=== PATIENT | female | born 1990 | race Caucasian/White ===

== ENCOUNTER 2024-06-06 09:52 | Outpatient (REF) | payer BC, SELFPAY ==
--- NOTE | ~2024-06-06 | XR_ITS ---
EXAMINATION: XR LUMBOSACRAL SPINE CLINICAL INFORMATION: M53.3 - Sacrococcygeal disorders, not elsewhere classified COMPARISON: None available. TECHNIQUE: Three views of the lumbosacral spine. FINDINGS: Rudimentary ribs at T12. No acute cortical disruption or gross malalignment. Mild endplate sclerosis at multiple levels. Small marginal osteophyte formation at the vertebral bodies lower thoracic spine. No lytic or blastic lesions. XR/XR lumbar spine 2-3V IMPRESSION: Mild multilevel thoracolumbar spondylosis. Electronically signed by: Guillermo Schaeffer MD 06/09/2024 09:53 AM EST
--- NOTE | ~2024-06-06 | XR_ITS ---
EXAMINATION: XR PELVIS CLINICAL INFORMATION: M53.3 - Sacrococcygeal disorders, not elsewhere classified COMPARISON: None available. TECHNIQUE: AP view of the pelvis. FINDINGS: Sclerosis in the sacroiliac joints more conspicuous on the left side. No acute cortical disruption or gross malalignment in either hip. Bony pelvis is intact. No lytic or blastic lesions. XR/XR pelvis min 3V IMPRESSION: Questionable left-sided sacroiliitis. Electronically signed by: Guillermo Schaeffer MD 06/09/2024 09:56 AM LEONARDA
--- OUTSIDE RECORDS SUMMARY | 2024-06-06 11:44 | XMS_ITS | Encounter Summary ---
Author Organization [facility] Address [phone] [place] [address] Care Team Providers Care Industrial Chemistry Teacher Name Role Phone Pcp, Unknown Primary Care Provider Unavailabl Iraida Nix NP Unavailable +- [phone] Mya Arrington CNM Unavailable [phone] Iraida Kahn NP Unavailable +- [phone] Rafa Heath MD Unavailable Blanche Brady L D RN Unavailable [phone] Marie Bianchi L D RN Unavailable [phone] Nancy Orosco LIVE OUT NANNY Unavailable [phone] Beka Marino MD Unavailable +- [phone] Juan Mcarthur MD Unavailable Unavailable Kellie Saucedo L D RN Unavailable Oracio Donnelly MD Unavailable +[phone] Juan Tarango MD Unavailable Beka Marino MD Unavailable +1 Iraida Kahn NP Primary Care Provider +1 Beka Marino MD Unavailable +[phone] Beka Marino MD Primary Care Provider [phone] Encounter Details Date Type Department Care Team (Late st Contact Info) Description 11/06/2018 Ancillary Orders [facility], X-Ray - [address] [place] [address] Ga Drew PA-C [address] [place] [address] [email or web address] Physical exam Social History Tobacco Use Types Packs/Day Years Used Date Smoking Tobacco: Former Smokeless Tobacco: Never Comments:At age 14; smoked f or one year only Alcohol Use Standard Drinks/Week Comments No 0 (1 standard drink = 0.6 oz pur e alcohol) Sex and Gender Information Value Date Recorded Sex Assigned at Female 04/09/2019 8:48 PM EST Gender Identity Female 04/09/2019 8:48 PM EST Sexual Orientation Not on file documented as of this encounter Plan of Treatment Not on file documented as of this encounter Results * XR CHEST PA AND LATERAL 2 VIEWS (11/06/2018 10:28 AM EDT) Anatomical Region Laterality Modality Chest Radiographic Jaclyn ging 11/06/2018 10:5 3 AM EDT Impressions 11/06/2018 11:27 AM EDT Clear lungs. POS - [id number] Edited by: Shira Arthur on 11/06/2018 11:13 AM Narrative 11/06/2018 11:27 AM EDT PA and lateral views of the chest obtained. No prior. Heart, lung, and mediastinal contours appear within the range of normal. No compression deformity. Procedure Note Roderick Crow MD - 11/06/2018 PA and lateral views of the chest obtained. No prior. Heart, lung, andmediastinal contours appear within the range of normal. No compressiondeformity. IMPRESSION: Clear lungs. POS - [id number] Edited by: Shira Arthur on 11/06/2018 11:13 AM Ga Drew PA-C IMG XR CHEST documented in this encounter Visit Diagnoses Diagnosis Physical exam Unspecified general medical examination Physical exam Unspecified general medical examination documented in this encounter Additional Health Concerns Infection Onset Date Last Indicated Resolved Time CoV-Risk 12/02/2019 12/02/2019 12/16/2019 1:23 AM EDT documented as of this encounter Care Teams Industrial Chemistry Teacher Relationship Specialty Start Date End Date Pcp, Unknown PCP - General 11/01/18 12/12/18 Iraida Kahn NP [address] [place] [address] [email or web address] PCP - General Internal Medicine 12/13/18 09/05/20 Beka Marino MD [address] [place] [address] [email or web address] PCP - General Internal Medicine 09/06/20 Iraida Kahn NP [address] [place] [address] [email or web address] Internal Medicine 11/01/18 Mya Arrington CNM [address] [place] [address] [email or web address] Historical LMR Provider 02/27/17 05/21/21 Iraida Kahn NP [address] [place] [address] [email or web address] Historical LMR Provider 02/27/17 Rafa Heath MD [address] [place] [address] [email or web address] Historical LMR Provider 02/27/17 05/21/21 Blanche Brady L D RN [address] [place] [address] [email or web address] Historical LMR Provider 02/27/17 05/21/21 Marie Bianchi NP [address] [place] [address] [email or web address] Historical LMR Provider 02/27/17 05/21/21 Nancy Orosco, LIVE OUT NANNY [address] [place] [address] [place] [address] [email or web address] Historical LMR Provider 02/27/17 Beka Marino MD [address] [place] [address] Historical LMR Provider 02/27/17 Juan Mcarthur MD Historical LMR Provider 02/27/17 05/21/21 Kellie Saucedo, DALTON [address] [place] [address] Historical LMR Provider 02/27/17 Oracio Donnelly MD [address] [place] [address] Historical LMR Provider 02/27/17 05/21/21 Juan Tarango MD [address] [place] [address] Historical LMR Provider 02/27/17 05/21/21 Beka Marino MD [address] [place] [address] [address] [place] [address] [email or web address] Insurance Assigned Provider 08/18/23 Beka Marino MD [address] [place] [address] [address] [place] [address] [email or web address] Insurance Assigned Provider 09/14/18 05/22/20 documented as of this encounter Additional Source Comments The information contained in this document represents components of the legal health record. It is not the complete legal health record.[facility]
--- OUTSIDE RECORDS SUMMARY | 2024-06-06 11:44 | XMS_ITS | Encounter Summary ---
Author Organization [facility] Address [phone] [place] [address] Care Team Providers Care Machining Manager Name Role Phone Iraida Kahn INSIDE SALES SUPERVISOR Unavailable + Iraida Kahn INSIDE SALES SUPERVISOR Unavailable + Nancy Orosco FARM PRODUCTS SHIPPER Unavailable + Beka Marino MD Unavailable +[phone] Beka Marino MD Unavailable +[phone] Beka Marino MD Primary Care Provider + Encounter Details Date Type Department Care Team (Late st Contact Info) Description 03/22/2023 Procedure Pass [address] [place] [address] Social History Tobacco Use Types Packs/Day Years Used Date Smoking Tobacco: Former Smokeless Tobacco: Never Comments:At age 14; smoked f or one year only Alcohol Use Standard Drinks/Week Comments No 0 (1 standard drink = 0.6 oz pur e alcohol) Education Answer Date Recorded Are you interested in more education? Not on jen e 09/08/2022 Are you concerned about learning? Not on file 09/08/2022 No 09/08/2022 No 09/08/2022 Digital Access Answer Date Recorded No 10/06/2022 No 10/06/2022 Reliable internet access at home? Not on file 10/06/2022 Device with a working camera? Not on file Intimate Partner Violence Answer Date R ecorded Are you denied basic needs s uch as food, clothing, or medical care? No 03/10/2023 In the past 12 months have y ou been in a relationship with a person who hurts, threatens, or tries to control you? No 03/10/2023 Are you denied basic needs s uch as food, clothing, or medical care? No 03/10/2023 In the past 12 months have y ou been in a relationship with a person who hurts, threatens, or tries to control you? No 03/10/2023 Sex and Gender Information Value Date Recorded Sex Assigned at Female 04/09/2019 8:48 PM EST Gender Identity Female 04/09/2019 8:48 PM EST Sexual Orientation Not on file documented as of this encounter Plan of Treatment Not on file documented as of this encounter Visit Diagnoses Not on filedocumented in this encounter Care Teams Machining Manager Relationship Specialty Start Date End Date Beka Marino MD [address] [place] [address] [place] [address] [email or web address] PCP - General Internal Medicine 09/06/20 Iraida Kahn NP [address] [place] [address] [email or web address] 11/01/18 Iraida Kahn NP [address] [place] [address] [email or web address] Historical LMR Provider 02/27/17 Nancy Orosco, FARM PRODUCTS SHIPPER [address] [place] [address] [place] [address] [email or web address] Historical LMR Provider 02/27/17 Beka Marino MD [address] [place] [address] [place] [address] [email or web address] Historical LMR Provider 02/27/17 Beka Marino MD [address] [place] [address] [address] [place] [address] [email or web address] Insurance Assigned Provider 08/18/23 documented as of this encounter Additional Source Comments The information contained in this document represents components of the legal health record. It is not the complete legal health record.[facility]
--- OUTSIDE RECORDS SUMMARY | 2024-06-06 11:45 | XMS_ITS | Encounter Summary ---
Author Organization [facility] Address [phone] [place] [address] Care Team Providers Care Divinity Professor Name Role Phone Iraida Kahn WINE CONSULTANT Unavailable + Iraida Kahn WINE CONSULTANT Unavailable + Nancy Orosco DISTRICT ENGINEER Unavailable [phone] Beka Marino MD Unavailable [phone] Beka Marino MD Unavailable [phone] Beka Marino MD Primary Care Provider [phone] Reason for Referral * Consultation (Within 2 weeks) - New Request Specialty Diagnoses / Procedures Referred By Pravin shields Referred To Contact Diagnoses Low back pain Beka Marino MD [address] [facility] [address] [place] [address] Email: Leoncio Clemons PA [address] [place] [address] Referral ID Status Reason Start Date Expiration Date V isits Requested Visits Authorized [id number] New Request 06/05/2024 06/05/2025 8 1 Encounter Details Date Type Department Care Team ([facility] st Contact Info) Description 06/05/2024 Orders Only [facility] [place] [facility] [address] [facility] [address] [place] [address] Josi Long MA [address] [place] [address] [email or web address] Low back pain (Primary Dx) Social History Tobacco Use Types Packs/Day Years Used Date Smoking Tobacco: Former Smokeless Tobacco: Never Comments:At age 14; smoked f or one year only Alcohol Use Standard Drinks/Week Comments Yes 1 (1 standard drink = 0.6 oz pur [...] as of this encounter Plan of Treatment Scheduled Referrals Name Type Priority Associated Diagnoses Order Schedule Ambulatory referral to External Provider Outpatient Referral Routine Low back pain Ordered: 06/05/2024 documented as of this encounter Visit Diagnoses Diagnosis Low back pain- Primary Lumbago documented in this encounter Care Teams Divinity Professor Relationship Specialty Start Date End Date Beka Marino MD [address] [place] [address] [address] [place] [address] [email or web address] PCP - General Internal Medicine 09/06/20 Iraida Kahn NP [address] [place] [address] [email or web address] Internal Medicine 11/01/18 Iraida Kahn, DALTON [address] [place] [address] [email or web address] Historical LMR Provider 02/27/17 Nancy Orosco, DISTRICT ENGINEER [address] [place] [address] [email or web address] Historical LMR Provider 02/27/17 Beka Marino MD [address] [place] [address] [email or web address] Historical LMR Provider 02/27/17 Beka Marino MD [address] [place] [address] [email or web address] Insurance Assigned Provider 08/18/23 documented as of this encounter Additional Source Comments The information contained in this document represents components of the legal health record. It is not the complete legal health record.[facility]
--- OUTSIDE RECORDS SUMMARY | 2024-06-06 11:46 | XMS_ITS | Encounter Summary ---
Author Organization [facility] Address [phone] [place] [address] Care Team Providers Care Retail Service Specialist Name Role Phone Beka Marino MD Primary Care Provider [phone] Iraida Kahn NP Primary Care Provider + Pcp, Unknown Primary Care Provider Unavailabl e Iraida Kahn NP Unavailable +- Beka Marino MD Unavailable +[phone] Mya Arrington CNM Unavailable [phone] Iraida Kahn NP Unavailable + [phone] Rafa Heath MD Unavailable Blanche Brady INVENTORY ASSISTANT Unavailable [phone] Marie Bianchi INVENTORY ASSISTANT Unavailable [phone] Nancy Orosco SUPPLY CHAIN BUSINESS ANALYST Unavailable [phone] Beka Marino MD Unavailable +[phone] Juan Mcarthur MD Unavailable Unavailable Kellie Saucedo INVENTORY ASSISTANT Unavailable Oracio Donnelly MD Unavailable [phone] Juan Tarango MD Unavailable [phone] Beka Marino MD Unavailable +[phone] Iraida Kahn NP Primary Care Provider + Beka Marino MD Unavailable +[phone] Beka Marino MD Primary Care Provider Encounter Details Date Type Department Care Team (Late st Contact Info) Description 10/25/2017 Procedure Pass OR Admitting Dept - Virtual Department [address] [place] [address] Social History Tobacco Use Types Packs/Day Years [...] Diagnoses Not on filedocumented in this encounter Additional Health Concerns Infection Onset Date Last Indicated Resolved Time CoV-Risk 12/02/2019 12/02/2019 12/16/2019 1:23 AM EDT documented as of this encounter Care Teams Retail Service Specialist Relationship Specialty Start Date End Date Beka Marino MD [address] [place] [address] [place] [address] [email or web address] PCP - General 03/20/17 05/19/18 Iraida Kahn NP [address] [place] [address] [email or web address] PCP - General Internal Medicine 05/20/18 10/31/18 Pcp, Unknown PCP - General 11/01/18 12/12/18 Iraida Kahn NP [address] [place] [address] [email or web address] PCP - General Internal Medicine 12/13/18 09/05/20 Beka Marino MD [address] [place] [address] [place] [address] [email or web address] PCP - General Internal Medicine 09/06/20 Iraida Kahn NP [address] [place] [address] [place] [address] [email or web address] Internal Medicine 11/01/18 Beka Marino MD [address] [place] [address] [place] [address] 03/20/17 10/31/18 Mya Arrington CNM [address] [place] [address] [email or web address] Historical LMR Provider 02/27/17 05/21/21 Iraida Kahn NP [address] [place] [address] [email or web address] Historical LMR Provider 02/27/17 Rafa Heath MD [address] [place] [address] [email or web address] Historical LMR Provider 02/27/17 05/21/21 Blanche Brady NP [address] [place] [address] [email or web address] Historical LMR Provider 02/27/17 05/21/21 Marie Bianchi NP [address] [place] [address] [email or web address] Historical LMR Provider 02/27/17 05/21/21 Nancy Orosco, JESSICA [address] [place] [address] Historical LMR Provider 02/27/17 Beka Marino MD [address] [place] [address] Historical LMR Provider 02/27/17 Juan Mcarthur MD Historical LMR Provider 02/27/17 05/21/21 Kellie Saucedo, DALTON [address] [place] [address] Historical LMR Provider 02/27/17 Oracio Donnelly MD [address] [place] [address] [email or web address] Historical LMR Provider 02/27/17 05/21/21 Juan Tarango MD [address] [place] [address] [email or web address] Historical LMR Provider 02/27/17 05/21/21 Beka Marino MD [address] [place] [address] Insurance Assigned Provider 08/18/23 Beka Marino MD [address] [place] [address] [email or web address] Insurance Assigned Provider 09/14/18 05/22/20 documented as of this encounter Additional Source Comments The information contained in this document represents components of the legal health record. It is not the complete legal health record.[facility]
--- OUTSIDE RECORDS SUMMARY | 2024-06-06 11:46 | XMS_ITS | Encounter Summary ---
Author Organization [facility] Address [phone] [place] [address] Care Team Providers Care Inventory Control Analyst Name Role Phone Iraida Kahn NP Unavailable + Iraida Kahn NP Unavailable + Nancy Orosco MANAGER IN HOME Unavailable [phone] Beka Marino MD Unavailable +[phone] Beka Marino MD Unavailable +[phone] Beka Marino MD Primary Care Provider [phone] Reason for Referral * Consultation (Within 2 weeks) - Authorized Specialty Diagnoses / Procedures Referred By Pravin shields Referred To Contact Diagnoses Chronic left sacroiliac joint pain Iraida Kahn NP [address] [facility] [address] [place] [address] Email: Leoncio Alarcon, DO [address] [place] [phone] Referral ID Status Reason Start Date Expiration Date V isits Requested Visits Authorized [id number] Authorized 03/13/2024 03/13/2025 12 12 Reason for Visit * Reason Onset Date Comments Referral 03/13/2024 Encounter Details Date Type Department Care Team ([facility] Contact Info) Description 03/13/2024 Telephone [facility] [address] [place] [address] Beka Marino MD 14 [facility] [address] [place] [address] [email or web address] Referral Social History Tobacco Use Types Packs/Day Years [...] on file documented as of this encounter Progress Notes * Josi Long MA - 04/14/2024 3:15 PM EST Referral re faxed to [phone] and [phone] * Leoncio Gonzáles - 04/14/2024 2:15 PM EST Pt called in, said [facility] does not have the referral. Pleaser fax. Central Support Mason Apprentice (Please do not reply to this user; this inbox is not monitored.) Thank you. * Josi Long MA - 03/13/2024 4:01 PM EDT Referral faxed * Jany Gamble RN - 03/13/2024 3:54 PM EDT Referral placed * Gregg Bingham - 03/13/2024 3:44 PM EDT Referral Request 1. Name of the office where the patient has been seen/requests to be seen: [facility] 2. Reason for referral/specialist appointment and the diagnosis code: M54.50 Low Back Pain 2A. Have you seen this provider before for this same problem? YES/NO: yes 2B. If this is a new problem, is your PCP aware of your symptoms? N/a 3. Date of appointment(s):03/13 4. Name of specialist provider: Dr. Leoncio Alarcon 5. NPI number to enter for referral authorization (enter n/a if not available): [id number] 6. Number of visits requested for referral: 12 7. Fax number of specialist office to send referral authorization: [phone] documented in this encounter Plan of Treatment Scheduled Referrals Name Type Priority Associated Diagnoses Order Schedule Ambulatory referral to External Physiatry Outpatient Referral Routine Chronic left sacroiliac joint pain Ordered: 03/13/2024 documented as of this encounter Visit Diagnoses Diagnosis Chronic left sacroiliac joint pain- Primary Disorders of sacrum documented in this encounter Care Teams Inventory Control Analyst Relationship Specialty Start Date End Date Beka Marino MD [address] [place] [address] [email or web address] PCP - General Internal Medicine 09/06/20 Iraida Kahn NP [address] [place] [address] [email or web address] Internal Medicine 11/01/18 Iraida Kahn NP [address] [place] [address] [email or web address] Historical LMR Provider 02/27/17 Nancy Orosco CNP [address] [place] [address] [email or web address] Historical LMR Provider 02/27/17 Beka Marino MD [address] [place] [address] [email or web address] Historical LMR Provider 02/27/17 Beka Marino MD [address] [place] [address] [email or web address] Insurance Assigned Provider 08/18/23 documented as of this encounter Additional Source Comments The information contained in this document represents components of the legal health record. It is not the complete legal health record.[facility]
--- OUTSIDE RECORDS SUMMARY | 2024-06-06 11:46 | XMS_ITS | Encounter Summary ---
Author Organization [facility] Address [phone] [place] [address] Care Team Providers Care Piano Regulator Name Role Phone Iraida Kahn ANTENNA SPECIALIST Unavailable + Iraida Kahn ANTENNA SPECIALIST Unavailable + Nancy Orosco FISH HATCHERY MAN Unavailable [phone] Beka Marino MD Unavailable +[phone] Beka Marino MD Unavailable +[phone] Beka Marino MD Primary Care Provider [phone] Reason for Referral * MRI/CAT Scan - Closed Specialty Diagnoses / Procedures Referred By Pravin hsields Referred To Contact Radiology Diagnoses Chronic lumbosacral pain Lumbar back pain with radiculopathy affecting left lower extremity Procedures MRI Lumbar Spine Leoncio Alarcon DO [address] [place] [address] Referral ID Status Reason Start Date Expiration Date Visits Re quested Visits Authorized [id number] Closed 05/16/2024 05/16/2025 1 1 Encounter Details Date Type Department Care Team (Latest Contact Info) Description 05/16/2024 Transcribe Orders Virtual Department [address] [place] [address] Leoncio Alarcon DO [address] [place] [phone] Chronic lumbosacral pain (Primary Dx); Lumbar back pain with radiculopathy affecting left lower extremity Social History Tobacco Use Types Packs/Day Years [...] documented as of this encounter Results * MRI LUMBAR SPINE (NEURO) WITHOUT CONTRAST (05/22/2024 10:44 AM EST) Anatomical Region Laterality Modality L-spine Magnetic Resonan ce 05/23/2024 12:2 9 PM EST Impressions 05/23/2024 12:32 PM EST 1. ??Mild lower lumbar spondylosis, without high-grade canal or foraminal narrowing. Narrative 05/23/2024 12:32 PM EST MRI LUMBAR SPINE (NEURO) WITHOUT CONTRAST Referring clinician's provided indication for this examination in Epic: Outside Radiology Order TECHNIQUE: MRI LUMBAR SPINE (NEURO) WITHOUT CONTRAST Multi-sequence, multi-planar MRI of the lumbar spine was performed without intravenous contrast. COMPARISON: MRI LUMBAR SPINE (NEURO) WITHOUT CONTRAST FINDINGS: LUMBAR SPINE: Alignment and Vertebrae: Normal alignment. No compression fracture. Marrow: No bone marrow replacing lesion. Discs and Endplates: Normal intervertebral disc heights and signal. Conus: Normal. Soft Tissues: Normal. No prevertebral edema. Other Findings: None. Findings by level: T12-L1: Negative L1-L2: Negative L2-L3: Negative L3-L4: Mild diffuse disc bulge and mild bilateral facet arthropathy, without significant canal or foraminal narrowing. L4-L5: Mild diffuse disc bulge and mild bilateral facet arthropathy, without significant canal or foraminal narrowing. L5-S1: Mild diffuse disc bulge with a small central protrusion. Mild bilateral facet arthropathy. No significant canal or foraminal narrowing. Procedure Note Joe Antonio MD - 05/23/2024 MRI LUMBAR SPINE (NEURO) WITHOUT CONTRAST Referring clinician's provided indication for this examination in Epic:Outside Radiology Order TECHNIQUE: MRI LUMBAR SPINE (NEURO) WITHOUT CONTRAST Multi-sequence, multi-planar MRI of the lumbar spine was performed withoutintravenous contrast. COMPARISON: MRI LUMBAR SPINE (NEURO) WITHOUT CONTRAST FINDINGS: LUMBAR SPINE: Alignment and Vertebrae: Normal alignment. No compression fracture. Marrow: No bone marrow replacing lesion. Discs and Endplates: Normal intervertebral disc heights and signal. Conus: Normal. Soft Tissues: Normal. No prevertebral edema. Other Findings: None. Findings by level: T12-L1: Negative L1-L2: Negative L2-L3: Negative L3-L4: Mild diffuse disc bulge and mild bilateral facet arthropathy,without significant canal or foraminal narrowing. L4-L5: Mild diffuse disc bulge and mild bilateral facet arthropathy,without significant canal or foraminal narrowing. L5-S1: Mild diffuse disc bulge with a small central protrusion. Mildbilateral facet arthropathy. No significant canal or foraminalnarrowing. IMPRESSION: 1. Mild lower lumbar spondylosis, without high-grade canal or foraminalnarrowing. Leoncio Alarcon DO IMG MR XSPECIALTY documented in this encounter Visit Diagnoses Diagnosis Chronic lumbosacral pain- Primary Lumbar back pain with radiculopathy affecting left lower extremity Chronic lumbosacral pain Lumbar back pain with radiculopathy affecting left lower extremity documented in this encounter Care Teams Piano Regulator Relationship Specialty Start Date End Date Beka Marino MD [address] [place] [address] [email or web address] PCP - General Internal Medicine 09/06/20 Iraida Kahn NP [address] [place] [address] [email or web address] Medicine 11/01/18 Iraida Kahn NP [address] [place] [address] [email or web address] Historical LMR Provider 02/27/17 Nancy Orosco CNP [address] [place] [address] [email or web address] Historical LMR Provider 02/27/17 Beka Marino MD [address] [place] [address] Historical LMR Provider 02/27/17 Beka Marino MD [address] [place] [address] [email or web address] Insurance Assigned Provider 08/18/23 documented as of this encounter Additional Source Comments The information contained in this document represents components of the legal health record. It is not the complete legal health record.[facility]
--- OUTSIDE RECORDS SUMMARY | 2024-06-06 11:46 | XMS_ITS | Encounter Summary ---
Author Organization [facility] Address [phone] [place] [address] Care Team Providers Care Powder Compounder Name Role Phone Iraida Kahn FLORAL DEPARTMENT SPECIALIST Unavailable + Iraida Kahn FLORAL DEPARTMENT SPECIALIST Unavailable + Nancy Orosco STAFFING RN Unavailable +1- Beka Marino MD Unavailable +[phone] Beka Marino MD Unavailable +[phone] Beka Marino MD Primary Care Provider +[phone]- Reason for Referral * MRI/CAT Scan - Closed Specialty Diagnoses / Procedures Referred By Pravin shields Referred To Contact Radiology Diagnoses Chronic lumbosacral pain Lumbar back pain with radiculopathy affecting left lower extremity Procedures MRI Lumbar Spine Leoncio Alarcon DO [address] [place] [address] Referral ID Status Reason Start Date Expiration Date Visits Re quested Visits Authorized [id number] Closed 05/16/2024 05/16/2025 1 1 Reason for Visit * MRI/CAT Scan - Closed Specialty Diagnoses / Procedures Referred By Pravin shields Referred To Contact Radiology Diagnoses Chronic lumbosacral pain Lumbar back pain with radiculopathy affecting left lower extremity Procedures MRI Lumbar Spine Leoncio Alarcon DO [address] [place] [address] Referral ID Status Reason Start Date Expiration Date Visits Re quested Visits Authorized [id number] Closed 05/16/2024 05/16/2025 1 1 Encounter Details Date Type Department Care Team (Latest Contact Info) Description 05/22/2024 8:17 AM EST - 05/22/2024 11:59 PM EST Hospital Encounter [facility], [facility] - [address] [place], [place] [address] Leoncio Alarcon, [address] [place] [address] [phone] Discharge Disposition: Home or Self Care Social History Tobacco Use Types Packs/Day Years [...] on file documented as of this encounter Medications at Time of Discharge Medication Sig Dispensed Refills Start Date End Date buPROPion (WELLBUTRIN XL) 300 MG ER 24 hr tablet Take 300 mg by mouth every morning. 01/20/2020 cariprazine (VRAYLAR) 1.5 mg capsule Take 1 mg by mouth daily. clonazePAM (KLONOPIN) 0.5 MG tablet Take 0.5 mg by mouth 3 (three) times a day. 11/24/2021 meloxicam (MOBIC) 15 MG tablet Take 15 mg by mouth daily. 01/18/2024 methylphenidate HCl (RITALIN LA) 30 MG 24 hr capsule Take 30 mg by mouth 2 (two) times a day. 01/12/2020 ondansetron (ZOFRAN) 4 MG tablet TAKE 1-2 TABLETS BY MOUTH EVERY 8 HOURS NEEDED FOR NAUSEA. 12 tablet 05/12/2024 semaglutide (OZEMPIC) 1 mg/dose (2 mg/1.5 mL) subcutaneous injection pen Inject 1 mg under the skin every 7 days. traMADoL (ULTRAM) 50 mg tablet Take 50 mg by mouth every 8 (eight) hours as needed. 10/29/2023 documented as of this encounter Plan of Treatment Not on file documented as of this encounter Procedures Procedure Name Priority Date/Time Associated Diagnosis Comments MRI LUMBAR SPINE (NEURO) WITHOUT CONTRAST Routine 05/22/2024 10:44 AM EST Chronic lumbosacral pain Lumbar back pain with radiculopathy affecting left lower extremity documented in this encounter Results * MRI LUMBAR SPINE [...] this encounter Visit Diagnoses Diagnosis Chronic lumbosacral pain Lumbar back pain with radiculopathy affecting left lower extremity documented in this encounter Care Teams Powder Compounder Relationship Specialty Start Date End Date Beka Marino MD [address] [place] [address] PCP - General Internal Medicine 09/06/20 Iraida Kahn NP [address] [place] [address] [email or web address] Internal Medicine 11/01/18 Iraida Kahn NP [address] [place] [address] Historical LMR Provider 02/27/17 Nancy Orosco CNP [address] [place] [address] Historical LMR Provider 02/27/17 Beka Marino MD [address] [place] [address] Historical LMR Provider 02/27/17 Beka Marino MD [address] [place] [address] Insurance Assigned Provider 08/18/23 documented as of this encounter Additional Source Comments The information contained in this document represents components of the legal health record. It is not the complete legal health record.[facility]
--- OUTSIDE RECORDS SUMMARY | 2024-06-06 11:46 | XMS_ITS | Encounter Summary ---
Author Organization [facility] Address [phone] [place] [address] Care Team Providers Care Glassworker Name Role Phone Beka Marino MD Primary Care Provider [phone] Iraida Kahn NP Primary Care Provider + Pcp, Unknown Primary Care Provider Unavailabl e Iraida Kahn NP Unavailable +- Beka Marino MD Unavailable +[phone] Mya Arrington CNM Unavailable [phone] Iraida Kahn NP Unavailable + [phone] Rafa Heath MD Unavailable Blanche Brady ASPHALT ROLLER OPERATOR Unavailable [phone] Marie Bianchi ASPHALT ROLLER OPERATOR Unavailable [phone] Nancy Orosco SCIENTIST PROPAGATOR Unavailable [phone] Beka Marino MD Unavailable +[phone] Juan Mcarthur MD Unavailable Unavailable Kellie Saucedo ASPHALT ROLLER OPERATOR Unavailable Oracio Donnelly MD Unavailable [phone] Juan Tarango MD Unavailable [phone] Beka Marino MD Unavailable +[phone] Iraida Kahn NP Primary Care Provider + Beka aMrino MD Unavailable +[phone] Beka Marino MD Primary Care Provider Encounter Details Date Type Department Care Team (Late st Contact Info) Description 11/30/2017 Procedure Pass [facility], [address] [address] Social History Tobacco Use Types Packs/Day Years [...] documented as of this encounter Care Teams Glassworker Relationship Specialty Start Date End Date Beka Marino MD [address] [place] [address] [place] [address] [email or web address] PCP - General 03/20/17 05/19/18 Iraida Kahn NP [address] [place] [address] [email or web address] PCP - General Internal Medicine 05/20/18 10/31/18 Pcp, Unknown PCP - General 11/01/18 12/12/18 Iraida Kahn NP [address] [place] [address] [email or web address] PCP - General Internal Medicine 12/13/18 09/05/20 Beka Marino MD [address] [place] [address] [email or web address] PCP - General Internal Medicine 09/06/20 Iraida Kahn NP [address] [place] [address] [place] [address] [email or web address] Internal Medicine 11/01/18 Beka Marino MD [address] [place] [address] [place] [address] 03/20/17 10/31/18 Mya [place] CNM [address] [place] [address] [email or web address] Historical LMR Provider 02/27/17 05/21/21 Iraida Kahn NP [address] [place] [address] [email or web address] Historical LMR Provider 02/27/17 Rafa Heath MD [address] [place] [address] [email or web address] Historical LMR Provider 02/27/17 05/21/21 Blanche Brady NP [address] [place] [address] [email or web address] Historical LMR Provider 02/27/17 05/21/21 Marie Bianchi NP [address] [place] [address] [email or web address] Historical LMR Provider 02/27/17 05/21/21 Nancy Orosco, JESSICA [address] [place] [address] Historical LMR Provider 02/27/17 Beka Marino MD [address] [place] [address] Historical LMR Provider 02/27/17 Juan Mcarthur MD Historical LMR Provider 02/27/17 05/21/21 Kellie Saucedo, DALTON [address] [place] [address] Historical LMR Provider 02/27/17 Oracio Donnelly MD [address] [place] [address] [email or web address] Historical LMR Provider 02/27/17 05/21/21 Juan Tarango MD [address] [place] [address] [email or web address] Historical LMR Provider 02/27/17 05/21/21 Beka Marino MD [address] [place] [address] Insurance Assigned Provider 08/18/23 Beka Marino MD [address] [place] [address] [email or web address] Insurance Assigned Provider 09/14/18 05/22/20 documented as of this encounter Additional Source Comments The information contained in this document represents components of the legal health record. It is not the complete legal health record.[facility]
--- OUTSIDE RECORDS SUMMARY | 2024-06-06 11:46 | XMS_ITS | Encounter Summary ---
Author Organization [facility] Address [phone] [place] [address] Care Team Providers Care Communications Equipment Operator Name Role Phone Iraida Kahn CENTRAL SERVICE TECHNICIAN Unavailable + Iraida Kahn CENTRAL SERVICE TECHNICIAN Unavailable + Nancy Orosco CAR FERRY CAPTAIN Unavailable + Beka Marino MD Unavailable +[phone] Beka Marino MD Unavailable +[phone] Beka Marino MD Primary Care Provider + Encounter Details Date Type Department Care Team (Late st Contact Info) Description 11/09/2021 Procedure Pass [address] [place] [address] Social History Tobacco Use Types Packs/Day Years [...] on file documented as of this encounter Last Filed Vital Signs Vital Sign Reading Time Taken Comments Blood Pressure - - Pulse - - Temperature - - Respiratory Rate - - Oxygen Saturation - - Inhaled Oxygen Concentration - - Weight 79.4 kg (175 lb) 11/11/2021 9:18 AM EDT Height 157.5 cm (5' 2 ) 11/11/2021 9:18 AM EDT Body Mass Index 32.01 11/11/2021 9:18 AM EDT documented in this encounter Plan of Treatment Not on file documented as of this encounter Visit Diagnoses Not on filedocumented in this encounter Care Teams Communications Equipment Operator Relationship Specialty Start Date End Date Beka Marino MD [address] [place] [address] [email or web address] PCP - General Internal Medicine 09/06/20 Iraida Kahn NP [address] [place] [address] [email or web address] Internal Medicine 11/01/18 Iraida Kahn NP [address] [place] [address] [email or web address] Historical LMR Provider 02/27/17 Nancy Orosco, CAR FERRY CAPTAIN [address] [place] [address] [email or web address] Historical LMR Provider 02/27/17 Beka Marino MD [address] [place] [address] [email or web address] Historical LMR Provider 02/27/17 Beka Marino MD [address] [place] [address] [email or web address] Insurance Assigned Provider 08/18/23 documented as of this encounter Additional Source Comments The information contained in this document represents components of the legal health record. It is not the complete legal health record.[facility]
--- OUTSIDE RECORDS SUMMARY | 2024-06-06 11:46 | XMS_ITS | Encounter Summary ---
Author Organization [facility] Address [phone] [place] [address] Care Team Providers Care Delivery Specialist Name Role Phone Iraida Kahn RESEARCH AND DEVELOPMENT RESEARCHER Unavailable + Iraida Kahn RESEARCH AND DEVELOPMENT RESEARCHER Unavailable + Nancy Orosco RESIDENT CARE MANAGER Unavailable + Beka Marino MD Unavailable +[phone] Beka Marino MD Unavailable +[phone] Beka Marino MD Primary Care Provider +1 Encounter Details Date Type Department Care Team (Late st Contact Info) Description 11/10/2022 Procedure Pass [facility], Ct Scan - [address] [address] Social History Tobacco Use Types Packs/Day Years [...] with a working camera? Not on file Sex and Gender Information Value Date Recorded Sex Assigned at Female 04/09/2019 8:48 PM EST Gender Identity Female 04/09/2019 8:48 PM EST Sexual Orientation Not on file documented as of this encounter Plan of Treatment Not on file documented as of this encounter Visit Diagnoses Not on filedocumented in this encounter Care Teams Delivery Specialist Relationship Specialty Start Date End Date Beka Marino MD [address] [place] [address] [email or web address] PCP - General Internal Medicine 09/06/20 Iraida Kahn NP [address] [place] [address] [email or web address] Internal Medicine 11/01/18 Iraida Kahn NP [address] [place] [address] [email or web address] Historical LMR Provider 02/27/17 Nancy Orosco, RESIDENT CARE MANAGER [address] [place] [address] [email or web address] Historical LMR Provider 02/27/17 Beka Marino MD [address] [place] [address] [email or web address] Historical LMR Provider 02/27/17 Beka Marino MD [address] [place] [address] [email or web address] Insurance Assigned Provider 08/18/23 documented as of this encounter Additional Source Comments The information contained in this document represents components of the legal health record. It is not the complete legal health record.[facility]
--- OUTSIDE RECORDS SUMMARY | 2024-06-06 11:46 | XMS_ITS | Encounter Summary ---
Author Organization [facility] Address [phone] [place] [address] Care Team Providers Care Central Office Technician Name Role Phone Unavailable Primary Care Provider Unavailabl e Encounter Details Date Type Department Care Team (Late st Contact Info) Description 12/19/2012 Hospital Encounter [facility],Outside Imaging [address] [place] [address] System, Provider Not In, [facility] [address] [address] Social History Tobacco Use Types Packs/Day Years [...] Name Priority Date/Time Associated Diagnosis Comments MRI LOWER EXTREMITY OUTSIDE (NO INTERPRETATION) Routine 12/19/2012 12:00 AM EDT documented in this encounter Results * MRI Lower Extremity Outside (No Interpretation) (12/19/2012 12:00 AM EDT) Narrative SYSTEMGENERATED, DOCUMENTATION - 01/06/2020 1:52 PM EDT This study is for PACS storage only and not for interpretation. Provider Not In System PhD IMG OUTSIDE I MAGING W/OUT INTERPRETATION documented in this encounter Visit Diagnoses Not on filedocumented in this encounter Additional Health Concerns Infection Onset Date Last Indicated Resolved Time CoV-Risk 12/02/2019 12/02/2019 12/16/2019 1:23 AM EDT documented as of this encounter Additional Source Comments The information contained in this document represents components of the legal health record. It is not the complete legal health record.[facility]
--- OUTSIDE RECORDS SUMMARY | 2024-06-06 11:46 | XMS_ITS | Encounter Summary ---
Author Organization [facility] Address [phone] [place] [address] Care Team Providers Care Cargo And Container Inspector Name Role Phone Iraida Kahn SCRUM MASTER Unavailable + Iraida Kahn SCRUM MASTER Unavailable + Nancy Orosco MERCHANDISE PRESENTATION ASSOCIATE Unavailable + Beka Marino MD Unavailable +[phone] Beka Marino MD Unavailable +[phone] Beka Marino MD Primary Care Provider [phone] Encounter Details Date Type Department Care Team (Late st Contact Info) Description 11/10/2022 Procedure Pass OR Admitting Dept - [facility] Department [address] [place] [address] Social History Tobacco Use Types Packs/Day Years [...] on filedocumented in this encounter Care Teams Cargo And Container Inspector Relationship Specialty Start Date End Date Beka Marino MD [address] [place] [address] [email or web address] PCP - General Internal Medicine 09/06/20 Iraida Kahn NP [address] [place] [address] [email or web address] Internal Medicine 11/01/18 Iraida Kahn NP [address] [place] [address] [email or web address] Historical LMR Provider 02/27/17 Nancy Orosco, MERCHANDISE PRESENTATION ASSOCIATE [address] [place] [address] [email or web address] Historical LMR Provider 02/27/17 Beka Marino MD [address] [place] [address] [email or web address] Historical LMR Provider 02/27/17 Beka Marino MD [address] [place] [address] [email or web address] Insurance Assigned Provider 08/18/23 documented as of this encounter Additional Source Comments The information contained in this document represents components of the legal health record. It is not the complete legal health record.[facility]
--- OUTSIDE RECORDS SUMMARY | 2024-06-06 11:46 | XMS_ITS | Encounter Summary ---
Author Organization [facility] Address [phone] [place] [address] Care Team Providers Care Fish Trapper Name Role Phone Iraida Kahn FIBERGLASS GRINDER Unavailable [phone] Mya ArringtonM Unavailable [phone] Iraida Kahn FIBERGLASS GRINDER Unavailable [phone] Rafa Heath MD Unavailable Blanche Brady FIBERGLASS GRINDER Unavailable [phone] Marie Bianchi FIBERGLASS GRINDER Unavailable Nancy Orosco DUST BOX TENDER Unavailable [phone] Beka Marino MD Unavailable [phone] Juan Mcarthur MD Unavailable Unavailable Kellie Saucedo FIBERGLASS GRINDER Unavailable Oracio Donnelly MD Unavailable [phone] Juan Tarango MD Unavailable Beka Marino MD Unavailable [phone] Iraida Kahn FIBERGLASS GRINDER Primary Care Provider [phone] Beka Marino MD Unavailable [phone] Beka Marino MD Primary Care Provider [phone] Encounter Details Date Type Department Care Team (Late st Contact Info) Description 01/06/2020 Ancillary Orders [facility],Outside Imaging [address] [place], [place] [id number] System, Provider Not In, PhD Partners [address] [address] Social History Tobacco Use Types Packs/Day Years [...] as of this encounter Results * MRI Lower Extremity Outside (No Interpretation) (12/19/2012 12:00 AM EDT) Narrative SYSTEMGENERATED, DOCUMENTATION - 01/06/2020 1:52 PM EDT This study is for PACS storage only and not for interpretation. Provider Not In System PhD IMG OUTSIDE I MAGING W/OUT INTERPRETATION documented in this encounter Visit Diagnoses Not on filedocumented in this encounter Care Teams Fish Trapper Relationship Specialty Start Date End Date Iraida Kahn NP [address] [place] [address] [place] [address] [email or web address] PCP - General Internal Medicine 12/13/18 09/05/20 Beka Marino MD [address] [place] [address] [place] [address] [email or web address] PCP - General Internal Medicine 09/06/20 Iraida Kahn NP [address] [place] [address] [place] [address] [email or web address] Medicine 11/01/18 Mya Arrington CNM [address] [place] [address], [address] [place] [address] [email or web address] Historical LMR Provider 02/27/17 05/21/21 Iraida Kahn NP [address] [place] [address] [place] [address] [email or web address] Historical LMR Provider 02/27/17 Rafa Heath MD [address] [place] [address] [email or web address] Historical LMR Provider 02/27/17 05/21/21 Blanche Brady NP [address] [place] [address] [email or web address] Historical LMR Provider 02/27/17 05/21/21 Marie Bianchi NP [address] [place] [address] [email or web address] Historical LMR Provider 02/27/17 05/21/21 Nancy Orosco, JESSICA [address] [place] [address] [place] [address] [email or web address] Historical LMR Provider 02/27/17 Beka Marino MD [address] [place] [address] [place] [address] [email or web address] Historical LMR Provider 02/27/17 Juan Mcarthur MD Historical LMR Provider 02/27/17 05/21/21 Kellie Saucedo NP [address] [place] [address] Historical LMR Provider 02/27/17 Oracio Donnelly MD 22 [facility] [address] [place] [address] Historical LMR Provider 02/27/17 05/21/21 Juan Tarango MD 22 [facility] [address] [place] [address] Historical LMR Provider 02/27/17 05/21/21 Beka Marino MD [address] [place] [address] [place] [address] Insurance Assigned Provider 08/18/23 Beka Marino MD [address] [place] [address] [place] [address] [email or web address] Insurance Assigned Provider 09/14/18 05/22/20 documented as of this encounter Additional Source Comments The information contained in this document represents components of the legal health record. It is not the complete legal health record.[facility]
--- OUTSIDE RECORDS SUMMARY | 2024-06-06 11:46 | XMS_ITS | Encounter Summary ---
Author Organization [facility] Address [phone] [place] [address] Care Team Providers Care Machine Operator Hay Stacker Name Role Phone Iraida Kahn NP Unavailable + Iraida Kahn NP Unavailable + Nancy Orosco HOME ATTENDANT Unavailable [phone] Beka Marino MD Unavailable [phone] Beka Marino MD Unavailable [phone] Beka Marino MD Primary Care Provider [phone] Reason for Visit * Reason Comments Medication Refill Ondansetron Encounter Details Date Type Department Care Team (Late st Contact Info) Description 05/12/2024 Refill [facility] [place] Internal Medicine 14 [facility] [address] [place] [address] Iraida Kahn NP 14 [facility] [address] [place] [address] [email or web address] Medication Refill (Ondansetron) Social History Tobacco Use Types Packs/Day Years [...] as of this encounter Progress Notes * Leti Smith CMA - 05/12/2024 10:58 AM EST Rx Care Gap Status - Instructions for Clinical Staff (prescriber discretion applies): > No future appt: Please schedule if appropriate. Visit Info Last visit: 01/22/2024 Iraida Kahn NP - Internal Medicine [facility] > Requested f/u: Return for Annual physical w/fasting lab work . Upcoming visit: None ACTIONS TAKEN BY Leti Smith CMA - No action needed by clinical staff Anti-emetic / GI Anti-spasmodic Rx Protocol - ondansetron HCl Criteria met; renew for up to 12 months. Visit in the past 14 months: Yes documented in this encounter Plan of Treatment Not on file documented as of this encounter Visit Diagnoses Not on filedocumented in this encounter Care Teams Machine Operator Hay Stacker Relationship Specialty Start Date End Date Beka Marino MD [address] [place] [address] [address] [place] [address] PCP - General Internal Medicine 09/06/20 Iraida Kahn NP [address] [place] [address] [email or web address] Medicine 11/01/18 Iraida Kahn NP [address] [place] [address] [email or web address] Historical LMR Provider 02/27/17 Nancy Orosco CNP [address] [place] [address] [email or web address] Historical LMR Provider 02/27/17 Beka Marino MD [address] [place] [address] [email or web address] Historical LMR Provider 02/27/17 Beka Marino MD [address] [place] [address] [email or web address] Insurance Assigned Provider 08/18/23 documented as of this encounter Additional Source Comments The information contained in this document represents components of the legal health record. It is not the complete legal health record.[facility]
--- OUTSIDE RECORDS SUMMARY | 2024-06-06 11:46 | XMS_ITS | Encounter Summary ---
Author Organization [facility] Address [phone] [place] [address] Care Team Providers Care Multicultural Internship Name Role Phone Iraida Kahn MANAGER AGRICULTURE Unavailable + Iraida Kahn MANAGER AGRICULTURE Unavailable + Nancy Orosco DENTAL ASSISTANT Unavailable + Beka Marino MD Unavailable [phone] Beka Marino MD Unavailable [phone] Beka Marino MD Primary Care Provider + Encounter Details Date Type Department Care Team (Late st Contact Info) Description 05/16/2024 Procedure Pass [address] [place] [address] Social History Tobacco Use Types Packs/Day Years [...] - Inhaled Oxygen Concentration - - Weight 77.1 kg (170 lb) 05/16/2024 1:24 PM EST Height 157.5 cm (5' 2 ) 05/16/2024 1:24 PM EST Body Mass Index 31.09 05/16/2024 1:24 PM EST documented in this encounter Plan of Treatment Not on file documented as of this encounter Visit Diagnoses Not on filedocumented in this encounter Care Teams Multicultural Internship Relationship Specialty Start Date End Date Beka Marino MD [address] [place] [address] [email or web address] PCP - General Internal Medicine 09/06/20 Iraida Kahn NP [address] [place] [address] [email or web address] Medicine 11/01/18 Iraida Kahn NP [address] [place] [address] [email or web address] Historical LMR Provider 02/27/17 Nancy Orosco CNP [address] [place] [address] [email or web address] Historical LMR Provider 02/27/17 Beka Marino MD [address] [place] [address] [place] [address] [email or web address] Historical LMR Provider 02/27/17 Beka Marino MD [address] [place] [address] [place] [address] [email or web address] Insurance Assigned Provider 08/18/23 documented as of this encounter Additional Source Comments The information contained in this document represents components of the legal health record. It is not the complete legal health record.[facility]
== END 2024-06-06 09:53 | disposition home or self-care (01) ==
LOC: HO.HOSX 09:52
PROVIDERS: PCP Internal Medicine; Referring Provider Physical Medicine & Rehabilitation; Visit Provider Physician Assistant
DX: M53.3 Sacrococcygeal disorders, not elsewhere classified (principal); G89.29 Other chronic pain
CPT/HCPCS: 72100; 72110; 72190

== ENCOUNTER → 2024-06-06 10:33 | Outpatient (BNV) | payer BC, SELFPAY | PROVIDERS: PCP Internal Medicine; Referring Provider Physical Medicine & Rehabilitation; Visit Provider Radiology Diagnostic Radiology | DX: M54.50 Low back pain, unspecified (principal) | CPT/HCPCS: 72100; 72190 ==